=== PATIENT | male | born 1990 | race Caucasian/White ===

== ENCOUNTER → 2019-06-13 | Outpatient (CLI) | payer BC ==
--- NOTE | 2019-06-14 13:55 | SLEEP ---
DATE OF STUDY: 06/13/2019 HOME SLEEP STUDY REFERRING PHYSICIAN: Moises Winston MD The patient is 28 years old who weighs 285 pounds with a BMI of 42. The patient's [place] score was 5. The patient underwent home sleep study performed by [facility]. Total recording time was 338 minutes. During the night study, the patient had 1 obstructive apnea, 2 mixed apneas, no central apneas and 18 hypopneas. The patient's apnea hypopnea index was 3.7 per hour. Supine index of 5.4 per hour. The patient had signs of upper airway resistance throughout the testing. Nocturnal oximetry study revealed mean oxygen saturation 93% with the lowest of 82%. 4 minutes were spent in oxygen saturation less than 90%. Mean heart rate 71 beats per minute. IMPRESSION: 1. Mild positional sleep apnea on home sleep study. Total AHI of 3.7 per hour and supine AHI of 5.4 per hour. The patient had signs of upper airway resistance throughout the study. 2. Mild nocturnal hypoxia. RECOMMENDATIONS: 1. Home sleep study can underestimate severity of sleep apnea. If clinical suspicion for sleep apnea is still high, then consider doing in-lab polysomnogram. 2. Avoid FLAT KNITTER depressants. 3. Weight loss is strongly advised. 4. Caution regarding driving until the patient's hypersomnia is resolved. MOISES WINSTON MD DR: LESLY/[email or web address] JOB#: [id number] / [id number] SID
== END | disposition home or self-care (01) ==
LOC: RT 08:01
PROVIDERS: ATTEND Internal Medicine Critical Care Medicine
DX: G47.33 Obstructive sleep apnea (adult) (pediatric) (principal); G47.34 Idiopathic sleep related nonobstructive alveolar hypoventilation
CPT/HCPCS: G0399